=== PATIENT | female | born 1985 | race Caucasian/White ===

== ENCOUNTER 2018-01-23 14:29 | Outpatient (CLI) | payer OTHER | END 2018-01-23 14:30 | disposition home or self-care (01) | LOC: DTY/OP 14:29 | PROVIDERS: ATTEND Surgery | DX: E66.01 Morbid (severe) obesity due to excess calories (principal); Z98.84 Bariatric surgery status | CPT/HCPCS: 97802 ==

== ENCOUNTER 2018-01-26 10:30 | Outpatient (CLI) | payer BC ==
--- NOTE | 2018-01-26 13:16 | RAD ---
BIPHASIC UPPER GI: HISTORY: Abdominal pain. FINDINGS: Swallowing was grossly normal. There is unobstructed flow of contrast through the esophagus and into the stomach, duodenum, and the proximal jejunum. No ulcer, stricture, mass or diverticulum is seen. No GE reflux was noted spontaneously or during the Valsalva maneuver. IMPRESSION: Normal exam. POS: JORJE
== END 2018-01-26 10:31 | disposition home or self-care (01) ==
LOC: RAD 10:30
PROVIDERS: ATTEND Surgery
DX: K21.9 Gastro-esophageal reflux disease without esophagitis (principal)
CPT/HCPCS: 74247

== ENCOUNTER 2018-01-27 10:10 | Inpatient (IN) | payer OTHER ==
[2018-01-27 16:02] VITALS: BMI 49.2
[2018-01-29] MEDS ORDERED: CEFAZOLIN/Water 2 GM/20 ML SYRINGE ONE (06:21)
[2018-01-29] MEDS ORDERED: Heparin 5,000 UNITS/ML VIAL ONE (06:22)
[2018-01-29] MEDS ORDERED: Bupivacaine/Epinephrine 0.25% 30 ML VIAL ONE ×2 (06:28→06:39)
[2018-01-29] MEDS ORDERED: Midazolam HCl 2 mg/2 ml Vial ONE ×2 (06:47→07:01)
[2018-01-29] MEDS ORDERED: Scopolamine 1.5 mg/72 hour Patch ONE (06:47)
[2018-01-29] MEDS ORDERED: Fentanyl 250 MCG/5 ML VIAL ONE (07:01)
[2018-01-29] MEDS ORDERED: Ondansetron HCl/PF 4 MG/2 ML Vial IVP PRN ×3 (09:16→11:10)
[2018-01-29] MEDS ORDERED: Promethazine HCl 25 MG/ML VIAL SLOW IVP PRN (09:16)
[2018-01-29] MEDS ORDERED: Promethazine HCl 25 MG/ML VIAL IM PRN ×3 (09:16→11:10)
[2018-01-29] MEDS ORDERED: D5 1/2 NS w/20 mEq KCL 1,000 ML ONE (09:35)
[2018-01-29] MEDS ORDERED: fentaNYL Citrate/PF 2,000 MCG in Sodium Chloride 0.9% 60 ML IV PRN (09:42)
[2018-01-29] MEDS ORDERED: diphenhydrAMINE 50 MG/ML VIAL IM PRN (09:42)
[2018-01-29] MEDS ORDERED: Zolpidem Tartrate 5 MG TAB PO PRN (09:42)
[2018-01-29] MEDS ORDERED: diphenhydrAMINE 25 MG CAP PO PRN (09:42)
[2018-01-29] MEDS ORDERED: Ketorolac Tromethamine 30 MG/ML VIAL IVP PRN (09:42)
[2018-01-29] MEDS ORDERED: diphenhydrAMINE 50 MG/ML VIAL IVP PRN ×2 (09:42→11:10)
[2018-01-29] MEDS ORDERED: Naloxone HCl 0.4 mg/ml Vial IV PRN (09:42)
[2018-01-29] MEDS ORDERED: Communication Order-Pharmacy FS SCH (09:45)
[2018-01-29] MEDS ORDERED: Fentanyl 100 MCG/2 ML VIAL ONE ×2 (09:47→10:05)
[2018-01-29] MEDS ORDERED: Promethazine HCl 25 MG/ML VIAL ONE (09:59)
[2018-01-29] MEDS ORDERED: Dextrose 50% Abboject 50 ML SYRINGE SLOW IVP PRN (11:10)
[2018-01-29] MEDS ORDERED: hydrALAZINE 20 MG/ML VIAL SLOW IVP PRN (11:10)
[2018-01-29] MEDS ORDERED: Dextrose 5% in Water 1,000 ML IV PRN (11:10)
[2018-01-29] MEDS: D5 1/2 NS w/20 mEq KCL 1,000 ML IV SCH ×3 (12:05→20:39)
[2018-01-29] MEDS: Acetaminophen 1,000 MG in Premix Bag 1 BAG IVPB SCH ×3 (12:05→23:31)
[2018-01-29] MEDS ORDERED: Glycopyrrolate 0.2 MG/ML 5 ML SYRINGE ONE (15:34)
[2018-01-29] MEDS ORDERED: PROPOFOL 200 MG/20 ML VIAL ONE (15:34)
[2018-01-29] MEDS ORDERED: Dexamethasone 20 MG/5 ML VIAL ONE (15:34)
[2018-01-29] MEDS ORDERED: Ketorolac Tromethamine 30 MG/ML VIAL ONE (15:34)
[2018-01-29] MEDS ORDERED: Lidocaine 1% PF 5 ML VIAL ONE (15:34)
[2018-01-29] MEDS ORDERED: PHENYLEPHRINE-NS 100 MCG/ML 10 ML SYRINGE ONE (15:34)
[2018-01-29] MEDS ORDERED: Ondansetron HCl/PF 4 MG/2 ML Vial ONE (15:34)
[2018-01-29] MEDS: busPIRone HCl 10 MG TAB PO SCH (20:39)
[2018-01-29] MEDS ORDERED: Enoxaparin Sodium 40 MG/0.4 ML SYRINGE SC SCH (21:00)
--- NOTE | 2018-01-29 22:55 | OP ---
DATE OF PROCEDURE: 01/29/2018 PREOPERATIVE DIAGNOSES: 1. Morbid obesity with a body mass index of 51. 2. Hypertension. 3. Gastroesophageal reflux. POSTOPERATIVE DIAGNOSES: 1. Morbid obesity with a body mass index of 51. 2. Hypertension. 3. Gastroesophageal reflux. PROCEDURE: Laparoscopic Chris-en-Y gastric bypass. SURGEON: Fox Pepe M.D. ANESTHESIA: General. ESTIMATED BLOOD LOSS: 50 mL. COMPLICATIONS: None. FINDINGS: Normal postoperative EGD. TECHNIQUE: The patient was taken to the operating room and placed supine on the table. After genera l anesthetic was obtained, bilateral arms and legs are double strapped to bariatric table. Abdomen i s prepped and draped in a sterile fashion. OG tube had been used to decompress the stomach. Left monroe bcostal 5-mm Optiview trocar was placed in the usual fashion. High-flow pneumoperitoneum was obtaine d. Left and right abdominal 12-mm trocars as well as a right subcostal 5 mm trocar placed under dire ct visualization. The omentum was raised up to expose the transverse colon. The omentum was split t o the level of the mid transverse colon. Ligament of Treitz was found and 25 cm marched distally adh ere. A laparoscopic stapler was fired across the jejunum. The mesentery was taken right on the dist al small bowel for distance of 5 cm and then a distance of 100 cm was marched out, care taken to avoi d twisting of the mesentery of the small bowel. At this location, 100 cm distal and enterotomy is ma de on the antimesenteric surface of the jejunum. Enterotomies made on the antimesenteric surface of the stapled end proximally and a [id number] jejunojejunostomy is performed. The common enterotomy was closed using a transverse fire of the stapler as well. The mesenteric defects closed using a Yusuf ryl suture. The Chris limb is able to be brought up over the top through the split in the omentum on top of the transverse colon under no tension. A 5 mm incision was made at the xiphoid and Candice was used to raise the liver off the GE junction. The patient placed in reverse Trendelenburg positio n. A window was made posterior gastric at 3 cm distal to the GE junction along the lesser curve. A stapler is fired transversely across the stomach here to start the pouch. A gastrotomy was then made on greater curve of the stomach and the distal stomach and the 25 anvil was brought in with a string tied to its sharp pin placed up into this proximal stomach pouch using the band passer. Band passer is used to make a small gastrotomy just the above-mentioned staple line and the sharp pin and string for the anvil was brought out here, this would be the location of the future gastrojejunostomy. The resultant gastrotomy was then closed using multiple fires of the stapler. The stomach pouch is then created and formed by firing multiple loads up towards the angle of His from the end of the first st aple line. Stomach is completely transected at the angle of His. The Chris limb below and enterotomy is made on its stapled end and the base for the EEA stapler was brought into the left upper quadrant incision, placed into the end of the small bowel and its sharp pin brought out on the antimesenteric surface more distally. The sharp pin is connected to the pin below and the anastomosis is made by f iring the stapler. Two good rings of tissue are obtained. The Chris limb is then stapled just to the patient's left of the anastomosis and the excess small bowel was removed from the left subcostal inc ision. The anastomosis is oversewn using #2 Vicryl sutures. There is no tension on the anastomosis. No evidence of ischemia to the anastomosis. EGD scope is passed into the esophagus, stomach to the level of the jejunum without any obstruction or air leakage. Candice retractors removed under dir ect visualization without bleeding. The left subcostal incision fascial defects closing GraNee needl e 0 Vicryl tie. All port sites were infiltrating local anesthetic. All ports are removed under came ra visualization. Pneumoperitoneum was let down. The left subcostal incision and the rest are all i rrigated copiously using sterile solution until returns are clear. The wounds were irrigated and shoaib sed using 4-0 Monocryl and Dermabond. The patient en route to recovery in stable condition. All ins trument counts, needle counts, lap counts were correct.
[2018-01-30] MEDS: Acetaminophen 1,000 MG in Premix Bag 1 BAG IVPB SCH (05:23)
[2018-01-30 06:08] LABS: Anion Gap 11 mmol/L (10-20); BUN (Urea Nitrogen) 13 mg/dL (7.0-18.7); Calc. Creatinine Clearance 171 mL/min (70-130); Calcium 8.4 mg/dL (7.8-10.44); Carbon Dioxide 26 mmol/L (22-29); Chloride 107 mmol/L (98-107); Estimated GFR-MDRD 65; Glucose 136 mg/dL (70-105); Potassium 4.6 mmol/L (3.5-5.1); Sodium 139 mmol/L (136-145)
[2018-01-30 06:59] LABS: Hemoglobin 11.1 g/dL (12.0-16.0); Mean Corpuscular HGB CONC 35.5 g/dL (32.0-36.0); Mean Corpuscular Hemoglobin 33.2 pg (27.0-31.0); Mean Corpuscular Volume 93.4 fL (78.0-98.0); Mean Platelet Volume 7.4 fL (7.4-10.4); Platelet Count 328 thou/uL (130-400); RBC Distribution Width 11.7 % (11.5-14.5); Red Blood Cell (RBC) Count 3.34 mill/uL (4.20-5.40); White Blood Cell (WBC) Count 14.9 thou/uL (4.8-10.8)
[2018-01-30 08:22] LABS: Band 9 % (5-11); Lymphocytes 26 % (21-51); MDiff Complete? YES; Monocytes 4 % (0-10); Neutrophil 61 % (42-75); RBC Morphology Normal
[2018-01-30] MEDS ORDERED: Aripiprazole 2 MG TAB PO SCH (09:00)
[2018-01-30] MEDS ORDERED: Pantoprazole 40 MG VIAL IVP SCH (09:00)
[2018-01-30] MEDS: busPIRone HCl 10 MG TAB PO SCH (09:05)
[2018-01-30] MEDS: Hydrocodone-Acetamin 15 ML UDCUP PO PRN ×2 (09:06→13:56)
[2018-01-30] MEDS: D5 1/2 NS w/20 mEq KCL 1,000 ML IV SCH (11:28)
[2018-01-30 12:01] VITALS: BP 136/83; TEMP 98.7
== END 2018-01-30 14:36 | disposition home or self-care (01) | DRG 621 ==
LOC: SURG A 01-29 05:46
PROVIDERS: ADMIT Surgery; ATTEND Surgery
PROC: 0D164ZA Bypass Stomach to Jejunum, Percutaneous Endoscopic Approach (ICD-10-PCS; principal; 2018-01-29)
DX: E66.01 Morbid (severe) obesity due to excess calories (principal); Z68.43 Body mass index [BMI] 50.0-59.9, adult; I10 Essential (primary) hypertension; K21.9 Gastro-esophageal reflux disease without esophagitis
CPT/HCPCS: 36415; 80048; 85025; C9113; J0131; J1100; J1644; J1650; J1885; J2001; J2250; J2405; J2550; J2704; J3010; J7050

== ENCOUNTER 2019-02-05 12:56 | Outpatient (CLI) | payer BC ==
--- NOTE | 2019-02-05 13:53 | CT ---
CT BRAIN WITH AND WITHOUT IV CONTRAST: HISTORY: Acute non intractable headache. Visual disturbance FINDINGS: No evidence of infarct, hemorrhage, mass, midline shift or abnormal extra axial fluid collections is seen. The ventricular size is normal and the basilar cisterns are patent. No abnormal postcontrast enhancement is seen. The bony calvarium is intact. The visualized paranasal sinuses are well-aerated. IMPRESSION: Normal exam.
== END 2019-02-05 12:57 | disposition home or self-care (01) ==
LOC: SCSCT 12:56
PROVIDERS: ATTEND Family Medicine
DX: F33.1 Major depressive disorder, recurrent, moderate (principal); R51 Headache; R42 Dizziness and giddiness; H53.9 Unspecified visual disturbance; R29.3 Abnormal posture
CPT/HCPCS: 70470

== ENCOUNTER 2022-05-05 00:42 | Inpatient (IN) | payer BC ==
[2022-05-05 02:16] VITALS: BMI 41.6
[2022-05-05] MEDS ORDERED: traMADol HCl 50 MG TAB PO PRN (02:39)
[2022-05-05] MEDS ORDERED: Sodium Chloride 0.9% 1,000 ML IV SCH ×2 (02:45→08:00)
[2022-05-05] MEDS ORDERED: Ondansetron ODT 4 MG TAB SL PRN (02:45)
[2022-05-05] MEDS ORDERED: Acetaminophen 325 MG TAB PO PRN (02:45)
[2022-05-05] MEDS ORDERED: Ondansetron PF 4 MG/2 ML Vial IVP PRN (02:45)
[2022-05-05] MEDS: Morphine 4 MG/ML VIAL SLOW IVP PRN ×2 (03:05→06:20)
[2022-05-05] MEDS ORDERED: Piperacillin/Tazobactam 4.5 GM in Sodium Chloride 0.9% 100 ML IVPB SCH (04:00)
[2022-05-05] MEDS: Sodium Chloride 0.9% 1,000 ML IV SCH ×2 (04:14→13:16)
[2022-05-05 07:12] LABS: Lactic Acid 3.4 mmol/L (0.5-2.2)
[2022-05-05 07:14] LABS: Phosphorus 2.7 mg/dL (2.3-4.7)
[2022-05-05 07:16] LABS: Anion Gap 15 mmol/L (10-20); BUN (Urea Nitrogen) 13 mg/dL (7.0-18.7); Band 53 % (5-11); Calc. Creatinine Clearance 118 mL/min (70-130); Calcium 8.1 mg/dL (7.8-10.44); Carbon Dioxide 17 mmol/L (22-29); Chloride 109 mmol/L (98-107); Estimated GFR 60; Glucose 183 mg/dL (70-105); Hemoglobin 13.2 g/dL (12.0-16.0); Lymphocytes 11 % (21-51); MDiff Complete? YES; Magnesium 1.4 mg/dL (1.6-2.6); Mean Corpuscular HGB CONC 33.1 g/dL (32.0-36.0); Mean Corpuscular Hemoglobin 31.8 pg (27.0-31.0); Mean Corpuscular Volume 96.1 fl (78.0-98.0); Mean Platelet Volume 7.6 fL (7.4-10.4); Monocytes 1 % (0-10); Neutrophil 33 % (42-75); Platelet Count 299 10x3/uL (130-400); Platelet Morphology Comment Appears Adequate; Potassium 4.1 mmol/L (3.5-5.1); RBC Distribution Width 11.6 % (11.5-14.5); RBC Morphology Normal; Reactive Lymphocytes 2 % (0-10); Red Blood Cell (RBC) Count 4.16 mill/uL (4.20-5.40); Reflex for Review?? YES; Sodium 137 mmol/L (136-145)
[2022-05-05] MEDS ORDERED: fentaNYL PF 100 MCG/2 ML SYRINGE ONE (07:19)
[2022-05-05] MEDS ORDERED: Dexmedetomidine 200 MCG/2 ML VIAL ONE (07:19)
[2022-05-05] MEDS ORDERED: Sodium Phosphate 15 MMOL in Sodium Chloride 0.9% 250 ML 250 ML IVPB SCH (08:00)
[2022-05-05] MEDS ORDERED: Magnesium Sulfate In Water 4 GM in Premix Bag 1 BAG IVPB SCH (08:00)
[2022-05-05] MEDS ORDERED: TETANUS, DIPHTHERIA TOX,ADULT (TDVAX) 0.5 ML VIAL IM ONE (09:00)
[2022-05-05] MEDS ORDERED: Bupivacaine/Epinephrine 0.25% 30 ML VIAL ONE (10:23)
[2022-05-05] MEDS ORDERED: NEOSTIGMINE 3 MG/3 ML SYR 3 MG/3 ML SYRINGE ONE (10:45)
[2022-05-05] MEDS ORDERED: PROPOFOL 200 MG/20 ML VIAL ONE (10:45)
[2022-05-05] MEDS ORDERED: Ondansetron PF 4 MG/2 ML Vial ONE (10:45)
[2022-05-05] MEDS ORDERED: Dexamethasone 20 MG/5 ML VIAL ONE (10:45)
[2022-05-05] MEDS ORDERED: ePHEDrine 50 MG/ML VIAL ONE (10:45)
[2022-05-05] MEDS ORDERED: Rocuronium Bromide 10 MG/ML (10ML VIAL) ONE (10:45)
[2022-05-05] MEDS ORDERED: Glycopyrrolate 0.2 MG/ML 5 ML SYRINGE ONE (10:45)
[2022-05-05] MEDS ORDERED: Phenylephrine 10 MG/ML VIAL ONE (10:45)
[2022-05-05] MEDS ORDERED: Ondansetron HCl/PF 4 MG/2 ML Vial IVP PRN (12:19)
[2022-05-05] MEDS ORDERED: Promethazine HCl 25 MG/ML VIAL IM PRN (12:19)
[2022-05-05] MEDS ORDERED: Promethazine HCl 25 MG/ML VIAL IVPB PRN (12:19)
[2022-05-05] MEDS ORDERED: FENTANYL 50 MCG/ML 1 ML VIAL ONE ×2 (12:29→12:37)
[2022-05-05] MEDS: Aripiprazole 2 MG TAB PO SCH (13:19)
[2022-05-05] MEDS: Famotidine 20 MG TAB PO SCH ×2 (13:19→21:12)
[2022-05-05] MEDS: Liothyronine Sodium 5 MCG TAB PO SCH (13:19)
[2022-05-05] MEDS: busPIRone HCl 10 MG TAB PO SCH ×2 (13:19→21:12)
[2022-05-05] MEDS: Piperacillin/Tazobactam 3.375 GM in Sodium Chloride 0.9% 100 ML IVPB SCH (16:27)
[2022-05-05] MEDS: traMADol HCl 50 MG TAB PO PRN (16:29)
[2022-05-05] MEDS: Venlafaxine HCl XR 75 MG CAP PO SCH (21:12)
[2022-05-06] MEDS: traMADol HCl 50 MG TAB PO PRN ×3 (00:10→20:19)
[2022-05-06] MEDS: Piperacillin/Tazobactam 3.375 GM in Sodium Chloride 0.9% 100 ML IVPB SCH ×2 (00:11→09:34)
[2022-05-06] MEDS: Sodium Chloride 0.9% 1,000 ML IV SCH ×2 (00:13→06:03)
[2022-05-06 07:14] LABS: Hemoglobin 11.7 g/dL (12.0-16.0); Mean Corpuscular HGB CONC 34.3 g/dL (32.0-36.0); Mean Corpuscular Hemoglobin 33.5 pg (27.0-31.0); Mean Corpuscular Volume 97.6 fl (78.0-98.0); Mean Platelet Volume 7.8 fL (7.4-10.4); Platelet Count 275 10x3/uL (130-400); RBC Distribution Width 11.6 % (11.5-14.5); Red Blood Cell (RBC) Count 3.49 mill/uL (4.20-5.40); White Blood Cell (WBC) Count 20.5 10x3/uL (4.8-10.8)
[2022-05-06 07:17] LABS: Magnesium 2.4 mg/dL (1.6-2.6); Phosphorus 2.2 mg/dL (2.3-4.7)
[2022-05-06 07:18] LABS: Lactic Acid 0.9 mmol/L (0.5-2.2)
[2022-05-06 08:19] LABS: Anion Gap 12 mmol/L (10-20); BUN (Urea Nitrogen) 12 mg/dL (7.0-18.7); Calc. Creatinine Clearance 148 mL/min (70-130); Calcium 8.6 mg/dL (7.8-10.44); Carbon Dioxide 20 mmol/L (22-29); Chloride 108 mmol/L (98-107); Estimated GFR 79; Glucose 150 mg/dL (70-105); Potassium 4.7 mmol/L (3.5-5.1); Sodium 135 mmol/L (136-145)
[2022-05-06] MEDS ORDERED: FLU VACC QS2022-23(6MOS UP)/PF 60 MCG/0.5 ML SYRINGE IM ONE (09:00)
[2022-05-06 09:04] LABS: Band 34 % (5-11); Lymphocytes 5 % (21-51); MDiff Complete? YES; Monocytes 5 % (0-10); Neutrophil 56 % (42-75); Platelet Morphology Comment Appears Adequate; RBC Morphology Normal
[2022-05-06] MEDS: Famotidine 20 MG TAB PO SCH ×2 (09:34→20:19)
[2022-05-06] MEDS: Aripiprazole 2 MG TAB PO SCH (09:34)
[2022-05-06] MEDS: busPIRone HCl 10 MG TAB PO SCH ×2 (09:34→20:19)
[2022-05-06] MEDS: Saccharomyces boulardii 250 MG CAP PO SCH (09:34)
[2022-05-06] MEDS: Enoxaparin Sodium 30 MG/0.3 ML SYRINGE SC SCH ×2 (09:35→20:20)
[2022-05-06] MEDS: Liothyronine Sodium 5 MCG TAB PO SCH (09:51)
[2022-05-06] MEDS: Senokot S 8.6-50 MG TAB PO SCH (20:19)
[2022-05-06] MEDS: Venlafaxine HCl XR 75 MG CAP PO SCH (20:19)
[2022-05-06] MEDS: Amoxicillin/Potassium Clav 875 MG TAB PO SCH (20:20)
[2022-05-07 05:57] LABS: #Eosinphils 0.2 thou/uL (0.0-0.7); #Lymphocytes 2.6 thou/uL (1.20-3.40); #Monocytes 0.6 thou/uL (0.11-0.59); #Neutrophils 15.3 thou/uL (1.40-6.50); %Basophils 0.1 % (0.0-1.0); %Eosinophils 1.2 % (0.0-10.0); %Monocytes 3.3 % (0.0-10.0); %Neutrophils 81.3 % (42.0-75.0); Hemoglobin 10.7 g/dL (12.0-16.0); Mean Corpuscular HGB CONC 31.7 g/dL (32.0-36.0); Mean Corpuscular Hemoglobin 31.1 pg (27.0-31.0); Mean Corpuscular Volume 98.3 fl (78.0-98.0); Mean Platelet Volume 7.8 fL (7.4-10.4); Platelet Count 313 10x3/uL (130-400); RBC Distribution Width 11.6 % (11.5-14.5); Red Blood Cell (RBC) Count 3.42 mill/uL (4.20-5.40); White Blood Cell (WBC) Count 18.8 10x3/uL (4.8-10.8)
[2022-05-07] MEDS ORDERED: Liothyronine Sodium 5 MCG TAB PO SCH (06:00)
[2022-05-07 06:14] LABS: Anion Gap 13 mmol/L (10-20); BUN (Urea Nitrogen) 14 mg/dL (7.0-18.7); Calc. Creatinine Clearance 128 mL/min (70-130); Calcium 8.6 mg/dL (7.8-10.44); Carbon Dioxide 21 mmol/L (22-29); Chloride 104 mmol/L (98-107); Estimated GFR 66; Glucose 99 mg/dL (70-105); Phosphorus 2.1 mg/dL (2.3-4.7); Potassium 3.9 mmol/L (3.5-5.1); Sodium 134 mmol/L (136-145)
[2022-05-07] MEDS: Amoxicillin/Potassium Clav 875 MG TAB PO SCH (08:44)
[2022-05-07] MEDS: Enoxaparin Sodium 30 MG/0.3 ML SYRINGE SC SCH (08:44)
[2022-05-07] MEDS: Aripiprazole 2 MG TAB PO SCH (08:45)
[2022-05-07] MEDS: Famotidine 20 MG TAB PO SCH (08:45)
[2022-05-07] MEDS: busPIRone HCl 10 MG TAB PO SCH (08:45)
[2022-05-07] MEDS: Saccharomyces boulardii 250 MG CAP PO SCH (08:45)
[2022-05-07] MEDS: Senokot S 8.6-50 MG TAB PO SCH (08:45)
[2022-05-07 11:55] VITALS: BP 125/80; TEMP 98.1
[2022-05-09 11:15] LABS: Fungus Stain Final report (.)
== END 2022-05-07 13:49 | disposition home or self-care (01) | DRG 339 ==
LOC: SURG A 02:01 → INTOOBSV 02:01 → OBSVTOIN 05-06 13:18
PROVIDERS: ADMIT Surgery; ATTEND Surgery
PROC: 0DTJ4ZZ Resection of Appendix, Percutaneous Endoscopic Approach (ICD-10-PCS; principal; 2022-05-05)
PROC: 0W9G4ZZ Drainage of Peritoneal Cavity, Percutaneous Endoscopic Approach (ICD-10-PCS; 2022-05-05)
DX: K35.21 Acute appendicitis with generalized peritonitis, with abscess (principal); Z68.41 Body mass index [BMI] 40.0-44.9, adult; Z20.822 Contact with and (suspected) exposure to COVID-19; F32.A Depression, unspecified; I10 Essential (primary) hypertension; Z79.890 Hormone replacement therapy; Z79.899 Other long term (current) drug therapy; D72.829 Elevated white blood cell count, unspecified; E66.01 Morbid (severe) obesity due to excess calories
CPT/HCPCS: 36415; 80048; 83605; 83735; 84100; 85025; 85060; 87070; 87077; 87102; 87186; 87205; 87206; 88304; 96372; 96374; 96375; G0378; J1100; J1650; J2270; J2370; J2405; J2543; J2704; J3010; J3475; J3490; J7050